=== PATIENT | female | born 1975 | race Caucasian/White ===

== ENCOUNTER 2022-01-24 12:11 | Observation (INO) | payer BC, SELFPAY ==
--- NOTE | ~2022-01-24 | CT_ITS ---
EXAMINATION: CT abdomen pelvis wo con DATE: 01/24/2022 14:40 INDICATION: Right flank pain TECHNIQUE: Computed tomography (CT) of the abdomen and pelvis was performed without intravenous contr ast. The dose-length product (DLP) was 188.28 mGy-cm. Automated exposure control and iterative recons truction technique were employed. COMPARISON: None FINDINGS: The lung bases are clear. The heart size is normal. The gallbladder is surgically absent. T he liver, spleen, pancreas, and adrenal glands are normal. Punctate nonobstructing stones of the left kidney measure up to 2 mm. There is a 3 mm stone in the distal right ureter which causes mild hydrou reteronephrosis. No pathologically enlarged abdominal or pelvic lymph nodes are identified. There is no free intraperitoneal gas or evidence of bowel obstruction. The appendix is normal. There is mild l umbar spondylosis. There is a fat-containing umbilical hernia. IMPRESSION: 1. 3 mm stone of the distal right ureter causing mild right hydroureteronephrosis. 2. Nonobstructing left nephrolithiasis. Reviewed, dictated and finalized at location B. IMPRESSION: 1. 3 mm stone of the distal right ureter causing mild right hydroureteronephros is. 2. Nonobstructing left nephrolithiasis.
--- NOTE | ~2022-01-24 | XR_ITS ---
EXAMINATION: XR retrograde pyelo w/stent RT DATE: 01/25/2022 13:09 INDICATION: Right ureteral stone with right hydronephrosis TECHNIQUE: 5 fluoroscopic images of the abdomen and pelvis were obtained during procedure performed andrew Gruber. Radiologist was not present for the imaging or procedure. The amount of fluoroscopy t paul used during this procedure was 0.2 minutes. COMPARISON: None. FINDINGS: the right ureteral stone evident on prior CT is unable to be visualized on the professional sports scout image. Cholecyst ectomy clips are seen in the right upper quadrant. Subsequent images demonstrate cannulation and retr ograde contrast injection into the right ureter demonstrating mild right hydronephrosis. Subsequent i mages demonstrate placement of a right internal ureteral stent with proximal tip at the right renal p bhavna and distal tip coiled in the bladder. IMPRESSION: 1. Mild right hydronephrosis with placement of a right internal ureteral stent. The distal right uret eral stone was unable to be visualized on the professional sports scout images and would correlate with procedure note re garding whether the stone had passed or was subsequently extracted. Reviewed, dictated and finalized at location A. IMPRESSION: 1. Mild right hydronephrosis with placement of a right internal ureteral stent. The distal right ureteral stone was unable to be visualized on the professional sports scout image s and would correlate with procedure note regarding whether the stone had passe d or was subsequently extracted.
[2022-01-24 12:13] VITALS: BP 147/72; PULSE 69; RESP 18; TEMP 36.9; O2SAT 98
[2022-01-24 12:25] LABS: Basophils Absolute Auto 0.1 K/mm3 (0.0-0.1); Eosinophils Absolute Auto 0.1 K/mm3 (0-0.3); Eosinophils Percent Auto 2.2 % (0-4.4); Hemoglobin 13.5 g/dL (12.0-15.0); Immature Granulocyte Absolute 0.02 K/mm3 (0.00-0.031); Immature Granulocyte Percent A 0.4 % (0-0.5); Lymphocytes Absolute Auto 1.17 K/mm3 (0.9-3.2); Lymphocytes Percent Auto 23.5 % (18.3-44.2); Mean Corpuscular HGB Conc 32.9 g/dl (32-36); Mean Corpuscular Hemoglobin 30.5 pg (26-34); Mean Corpuscular Volume 92.6 fl (80-100); Mean Platelet Volume 10.8 fl (7.4-10.4); Monocytes Absolute Auto 0.2 K/mm3 (0.1-0.6); Monocytes Percent Auto 3.6 % (2.6-8.5); Neutrophils Absolute Auto 3.4 K/mm3 (1.3-6.7); Neutrophils Percent Auto 69.3 % (45.5-73.1); Platelet Count Result 258 k/mm3 (150-375); Red Blood Count 4.43 M/mm3 (4.2-5.4); Red Cell Distribution Width 12.8 % (11.5-14.5)
[2022-01-24 12:34] LABS: Alanine Aminotransferase 14 U/L (6-35); Albumin Level 4.6 g/dL (3.5-5.1); Alkaline Phosphatase 52 U/L (38-126); Anion Gap 9 mmol/L (8-16); Aspartate Amino Transferase 21 U/L (14-36); Bilirubin,Total 0.7 mg/dL (0.2-1.3); Blood Urea Nitrogen 14 mg/dL (7-17); Calcium 9.7 mg/dL (8.4-10.2); Carbon Dioxide 27 mmol/L (22-30); Chloride 104 mmol/L (98-107); Estimated CRCL calculation 60 ml/min; Estimated Glomerular Filt Rate 59; Glucose 96 mg/dL (65-110); Potassium 4.1 mmol/L (3.4-5.0); Sodium 140 mmol/L (137-145)
[2022-01-24 12:46] LABS: Appearance Urine Clear (Clear); Bilirubin Urine Negative (Negative); Blood Urine 3+ (Negative); Color Urine Yellow (Yellow); Glucose Urine UA Negative (Negative); Ketones Urine Negative (Negative); Leukocyte Esterase Ur Negative LEU/UL (Negative); Nitrate Urine Negative (Negative); Protein Urine Negative (Negative); Specific Grav Ur 1.015 (1.001-1.035); Urobilinogen Urine 0.2 mg/dL (<2.0)
[2022-01-24 12:56] LABS: Bacteria Urine Trace /hpf; Mucus Urine Rare /lpf; RBC Urine >75 /hpf (0-2); Squamous Epithelial Cell Urine Few /hpf (Few)
[2022-01-24 12:57] LABS: Add Urine Microscopic? YES
[2022-01-24] MEDS: KETOROLAC 30 MG/ML VIAL (*BKC) IV PUSH (14:23)
--- NOTE | 2022-01-24 16:21 | ED.GENADULT ---
HPI - General Adult General Chief complaint: Abdominal Pain Stated complaint: kidney stone, flank pain Time Seen by Provider: 01/24/22 13:33 History of Present Illness HPI narrative: Patient is a 46-year-old female who presents the ER with reports of right-sided flank pain. Patient has history of kidney stones. She reports scar tissue in her distal ureter where the stones often get caught. She has been passing 1 for couple weeks and failed to follow-up with urologist that was assigned to our. She is supposed to have follow-up in the next 2 days with another urologist. Her normal urologist is currently on maternity leave. Patient has brought a CT report with her from 01/06/2022 that shows a 2 to 3 mm calculus in the distal ureter on the right side. Patient is having no fevers or chills or sweats. No burning urination. Last instrumentation for kidney stone was in March 2021. Related Data Home Medications Medication Instructions Recorded Confirmed hydrocodone 5 mg-acetaminophen 325 1 tablet PO TID PRN flank pain 01/24/22 01/24/22 mg tablet ondansetron 8 mg disintegrating 8 mg PO Q8H PRN Nausea 01/24/22 01/24/22 tablet tamsulosin 0.4 mg capsule (Flomax) 0.4 mg PO PRN PRN flank pain 01/24/22 01/24/22 Allergies Allergy/AdvReac Type Severity Reaction Status Date / Time morphine Allergy Severe Difficulty Verified 01/24/22 18:03 Breathing Review of Systems Review of Systems: All systems reviewed & are unremarkable except as noted in HPI and below Constitutional: Constitutional: Denies chills and Denies fever(s) Cardiovascular: Cardiovascular: Denies chest pain, Denies rapid heart rate and Denies radiating jaw, neck or arm pain Respiratory: Respiratory: Denies cough and Denies dyspnea Gastrointestinal: Gastrointestinal: Reports abdominal pain, Denies diarrhea, Reports nausea and Denies vomiting Genitourinary: Genitourinary: Denies hematuria, Reports nocturia, Denies dysuria and Reports flank pain PMFSH Past Medical History Medical History (Updated 01/24/22 @ 22:36 by Alen Canas MD) History of kidney stones Ureteral stricture, right Surgical History Surgical History (Updated 01/24/22 @ 22:33 by Alen Canas MD) History of lithotripsy Family History Family History (Updated 01/24/22 @ 18:16 by Ximena Cornejo RN) Mother Lupus Lung cancer Daughter Lupus Social History Social History Smoking status: Never smoker Alcohol intake: never Substance use: never Spiritual care concerns: No Exam Narrative: GENERAL: Well-appearing, well-nourished, and in no acute distress. HEAD: Normocephalic, atraumatic. EYES: PERRL and EOMI. ENT: Mucous membranes moist. CHEST: Clear to auscultation. No respiratory distress. HEART: Regular rate and rhythm. Normal peripheral pulses. ABDOMEN: Soft, nontender, nondistended. Right CVA tenderness. EXTREMITIES: Normal range of motion. No edema. SKIN: Warm, dry, no rash. NEURO: Alert and oriented x3. PSYCH: Normal mood and affect. Course Course Emergency Course: Patient still with pain after Toradol. Fentanyl has helped. Discussed with urology. Patient does have scheduled follow-up in 2 days however given the prolonged nature of the stone being there and the fact that she reports a stricture she is being offered a procedure tomorrow. Patient would like to stay overnight and have the stone removed tomorrow. Vital Signs Vital signs: Vital Signs Temperature 98.5 F 01/24/22 12:13 Pulse Rate 69 01/24/22 12:13 Respiratory Rate 18 01/24/22 12:13 Blood Pressure 147/72 H 01/24/22 12:13 Pulse Oximetry 98 01/24/22 12:13 Oxygen Delivery Room Air 01/24/22 12:13 Temperature 97.7 F 01/24/22 20:34 Pulse Rate 78 01/24/22 20:34 Respiratory Rate 20 01/24/22 20:34 Blood Pressure 124/66 01/24/22 20:34 Pulse Oximetry 100 01/24/22 20:34 Oxygen Delivery Room Air 01/24/22 17:42 Medical Decision M
[2022-01-24] MEDS: fentaNYL CITRATE INJ (*CRX) 100 MCG/2 ML VIAL 50 MCG IV PUSH ×3 (16:23→20:40)
[2022-01-24 16:58] VITALS: BP 139/86; PULSE 82; RESP 16; O2SAT 98
[2022-01-24 17:45] VITALS: BP 124/75; PULSE 57; RESP 14; TEMP 36.3; O2SAT 100; BMI 24.7
[2022-01-24] MEDS: SODIUM CHLORIDE 0.9% IV 1,000 ML 125 ML IV CONT (17:49)
[2022-01-24 18:07] VITALS: BMI 24.7
--- NOTE | 2022-01-24 18:10 | ADMGEN ---
This patient, Janice Ortega, was admitted to Medical Room 245-. Patient/family oriented to hospital policies and general routines including ID bracelet, bed and alarms, visiting hours, pain management, procedures, bathroom and other care routines, personal items, smoking policy, room service/diet, and visiting hours. Information on how to activate the Rapid Response Team has been discussed. Patient/Family are encouraged to report perceived risks to care and to ask questions if they do not understand what they are told or what they should do.
[2022-01-24 20:34] VITALS: BP 124/66; PULSE 78; RESP 20; TEMP 36.5; O2SAT 100
[2022-01-24] MEDS: HYDROcodone/acetaminophen (*CRX) 5-325 MG TABLET 1 TAB PO (21:20)
[2022-01-25] VITALS (12 sets, daily range): BP systolic 114–144; BP diastolic 65–87; PULSE 52–72; RESP 15–18; TEMP 36.3–36.6; O2SAT 98–100
[2022-01-25] MEDS: SODIUM CHLORIDE 0.9% IV 1,000 ML 125 ML IV CONT ×2 (01:50→09:59)
[2022-01-25] MEDS: HYDROcodone/acetaminophen (*CRX) 5-325 MG TABLET 1 TAB PO ×2 (01:50→14:58)
[2022-01-25] MEDS: fentaNYL CITRATE INJ (*CRX) 100 MCG/2 ML VIAL 50 MCG IV PUSH ×2 (08:01→11:00)
[2022-01-25] MEDS: ONDANSETRON INJ 4 MG/2 ML VIAL IV PUSH (08:01)
--- NOTE | 2022-01-25 10:43 | PC.NURSE ---
Report called to Myra NEVES preop.
--- NOTE | 2022-01-25 11:12 | WPDURCON ---
Assessment and Plan Assessment and plan (1) Ureterolithiasis: Code(s): N20.1 - Calculus of ureter Status: Acute Assessment and Plan: Keep NPO. Obtain Consent: Cystoscopy, right ureteroscopy with stone extraction, possible stent placement, right retrograde pyelogram, possible holmium laser. Plan to go to the OR today with Dr. Gruber. Urology Consult Note HPI Date Seen: 01/25/22 Time Seen: 11:25 Requesting Physician: Jaime Gruber MD Primary Care Provider: El Hensley, PAAnitaC Consult Narrative Reason for consult: Right Distal Ureteral Stone Narrative: Janice Ortega is a 46 year old female who presented to the ER last night for worsening right flank pain, nausea, vomiting, gross hematuria for a known right distal ureteral stone measuring 3mm that was diagnosed in the ER at [facility] in [place], [place] on 01/07/22. She was sent home from there with antibiotics, pain medications and told to try to pass her stone and f/u with her urologist. She is a former patient of Dr. Barreto but no longer see's him d/t being non compliant. She then started seeing Dr. Michelle Garcia at [facility], but she is on maternity leave at this time therefore she made an appt with Dr. Golden at our practice for tomorrow to be re-evaluated but the pain became too severe for her to wait for her appointment with our group. Her WBC 5.0, Creatinine is 1.00, UA shows some RBC's but is otherwise not concerning for a UTI. She states she had a negative urine culture with her PCP from last week. She has a urologic history with stones and infections dating back to 2 years of age. She has had ESWL's and Ureteroscopy's with stents in the past and states she doesn't do well with stents and has severe pain with them. She states she has had a hard time urinating since last night, she has the urge but cannot go very much. She also is afebrile at this time. Review of Systems Constitutional: Constitutional: Reports fatigue Cardiovascular: Cardiovascular: Denies chest pain Respiratory: Respiratory: Reports no additional respiratory complaints Gastrointestinal: Gastrointestinal: Reports abdominal pain, Reports nausea and Reports vomiting Genitourinary: Genitourinary: Reports hematuria, Denies nocturia, Denies dysuria, Reports flank pain, Denies urinary incontinence, Reports urinary hesitancy and Denies urinary urgency PMFSH Past Medical History Medical History History of kidney stones Ureteral stricture, right Surgical History Surgical History History of lithotripsy Family History Family History Mother Lupus Lung cancer Daughter Lupus Social History Social History Smoking status: Never smoker Alcohol intake: never Substance use: never Spiritual care concerns: No Meds Home Medications and Allergies Home Medications Medication Instructions Recorded Confirmed Type hydrocodone 5 mg-acetaminophen 325 1 tablet PO TID PRN flank pain 01/24/22 01/24/22 History mg tablet ondansetron 8 mg disintegrating 8 mg PO Q8H PRN Nausea 01/24/22 01/24/22 History tablet tamsulosin 0.4 mg capsule (Flomax) 0.4 mg PO PRN PRN flank pain 01/24/22 01/24/22 History Allergies Allergy/AdvReac Type Severity Reaction Status Date / Time morphine Allergy Severe Difficulty Verified 01/24/22 18:03 Breathing Vital Signs Vital Signs - 24 hr 01/24/22 12:13 01/24/22 16:58 01/24/22 17:45 Temperature 98.5 F 97.4 F L Pulse Rate 69 82 57 L Respiratory Rate 18 16 14 Blood Pressure 147/72 H 139/86 124/75 Pulse Oximetry 98 98 100 Oxygen Delivery Room Air 01/24/22 17:42 01/24/22 20:34 01/25/22 06:00 Temperature 97.7 F 97.7 F Pulse Rate 78 60 Respiratory Rate 20 16 Blood Pressure
--- NOTE | 2022-01-25 12:10 | PC.NURSE ---
To OR via stretcher.
--- NOTE | 2022-01-25 12:17 | WPDHPUPDATE1 ---
History and Physical Update Update Date/Time: 01/25/22 12:17 History and Physical has been reviewed, including an updated exam of the patient. There are NO changes in the patient's condition. Risks, benefits, and alternatives have been discussed and questions answered. Patient agrees to proceed with procedure.
[2022-01-25] MEDS: LACTATED RINGERS 1,000 ML 30 ML IV CONT ×2 (12:25→13:11)
--- NOTE | 2022-01-25 12:31 | WPDANESEPPF ---
Anes - Initial Pre Proc Eval Procedure: Operation Date: 01/25/22 13:30 Proposed Procedures p Cystoscopy, Right Ureteroscopy, Right Retrograde Pyelogram, Possible Right Stone Extraction, Possible Right Stent Placement, Possible Holmium Laser Procedure - Jaime Gruber MD Date/Time: 01/25/22 12:31 Surgeon: Jaime Gruber MD Pre Op Diagnosis: Ureterolithiasis Patient Data Age: 46 Gender: F Height: 1.7 m Weight: 71.8 kg Last Vital Signs Temp 36.5 C 01/25/22 06:00 Pulse 60 01/25/22 06:00 Resp 18 01/25/22 08:00 BP 138/80 01/25/22 06:00 Pulse Ox 98 01/25/22 08:14 O2 Del Method Room Air 01/25/22 08:14 Allergies Allergy/AdvReac Type Severity Reaction Status Date / Time morphine Allergy Severe Difficulty Verified 01/24/22 18:03 Breathing Home Medications Medication Instructions Recorded Confirmed Type hydrocodone 5 mg-acetaminophen 325 1 tablet PO TID PRN flank pain 01/24/22 01/24/22 History mg tablet ondansetron 8 mg disintegrating 8 mg PO Q8H PRN Nausea 01/24/22 01/24/22 History tablet tamsulosin 0.4 mg capsule (Flomax) 0.4 mg PO PRN PRN flank pain 01/24/22 01/24/22 History Laboratory Tests 01/24/22 01/24/22 12:18 12:23 Sodium 140 mmol/L mmol/L (137-145) Potassium 4.1 mmol/L mmol/L (3.4-5.0) Chloride 104 mmol/L mmol/L (98-107) Carbon Dioxide 27 mmol/L mmol/L (22-30) Anion Gap 9 mmol/L mmol/L (8-16) BUN 14 mg/dL mg/dL (7-17) Creatinine 1.00 mg/dL mg/dL (0.7-1.0) Estim Creat Clear Calc 60 ml/min ml/min Estimated GFR 59 (59 - ) Glucose 96 mg/dL mg/dL (65-110) Calcium 9.7 mg/dL mg/dL (8.4-10.2) Total Bilirubin 0.7 mg/dL mg/dL (0.2-1.3) AST 21 U/L U/L (14-36) ALT 14 U/L U/L (6-35) Alkaline Phosphatase 52 U/L U/L (38-126) Total Protein 7.0 g/dL g/dL (6.3-8.2) Albumin 4.6 g/dL g/dL (3.5-5.1) Urine Color Yellow (Yellow) Urine Appearance Clear (Clear) Urine pH 7.0 (5.0-9.0) Ur Specific Patriot 1.015 (1.001-1.035) Urine Protein Negative mg/dL mg/dL (Negative) Urine Glucose (UA) Negative mg/dL mg/dL (Negative) Urine Ketones Negative mg/dL mg/dL (Negative) Ur Blood (Man) 3+ H (Negative) Urine Nitrate Negative (Negative) Urine Bilirubin Negative (Negative) Urine Urobilinogen 0.2 mg/dL mg/dL (<2.0) Leukocyte Esterase Rfl Negative JOLYNN/UL JOLYNN/UL (Negative) Urine RBC >75 /hpf H /hpf (0-2) Urine WBC 4-6 /hpf H /hpf Ur Squamous Epith Cells Few /hpf /hpf (Few) Urine Bacteria Trace /hpf /hpf Urine Mucus Rare /lpf /lpf Patient hx anesthesia problems: none Family hx anesthesia problems: none Results Review: All pre-operative results and documents have been reviewed as part of the pre-operative evaluation. [facility] Past Medical History Medical History History of kidney stones Ureteral stricture, right Surgical History Surgical History History of lithotripsy Family History Family History Mother Lupus Lung cancer Daughter Lupus Social History Social History Smoking status: Never smoker Alcohol intake: never Substance use: never Spiritual care concerns: No Anes - Eval Final PreProcedure Day of Procedure 01/25/22 12:31 Patient weight: normal Heart: regular rate and rhythm Lungs: clear to auscultation Airway: Mallampati scale class II Neurological: alert and oriented Last oral intake: >/= 8 hours ASA classification: II Emergent: no Anesthetic plan: proceed Anesthesia type and monitoring: general LMA and standard monitori
[2022-01-25] MEDS: ceFAZolin 2 GM/D5W 50 ML 2 GM/50 ML BAG IVPB (12:39)
[2022-01-25] MEDS: LIDOCAINE HCL 2% GEL UROJET 10 ML PKG MUCOUS MEM (13:04)
--- NOTE | 2022-01-25 13:06 | W.PM.PROC2 ---
Procedure Note - Detailed Date of Procedure 01/25/22 Pre-op Diagnosis Right ureteral calculus Post-op Diagnosis Same Procedure Performed Cystoscopy, right retrograde pyelogram, right ureteroscopy with stone extraction, right ureteral stent placement 4.8 English contour Surgeon Jaime Gruber MD Anesthesia General Description of Procedure Patient is taken to the operative suite correctly identified. Once anesthesia was obtained she was placed in dorsal lithotomy position and prepped and draped usual sterile fashion. Twenty-two English scope was inserted into the bladder. There were no tumors noted. Right ureteral orifice was cannulated with a guidewire. We dilated the orifice using an 8/10 dilator. Rigid ureteral scope was then inserted into the right ureteral orifice. The stone was visualized. There were 2 stone fragments that were visualized and then grasped with an escape basket. These were retrieved and sent for analysis. Reinspection revealed no residual ureteral stones. Pyelogram was then performed to confirm placement the stent. 4.8 English contour stent was placed with the proximal end coiled in the renal pelvis and the distal in the bladder. The string was left attached. Patient was taken recovery stable condition. She will be discharged home later today and can remove the stent on Monday. Urine Output 400 Drains Yes Packing No Pathology Yes Complications No immediate complications Condition Stable Disposition PACU
[2022-01-25] MEDS: fentaNYL CITRATE INJ (*CRX) 100 MCG/2 ML VIAL 25 MCG IV PUSH (13:40)
--- NOTE | 2022-01-25 13:52 | SUR.PHASEI ---
[facility] FAX'D. PATIENT ON BEDPAIN; HAS URGENCY BUT CAN'T VOID.
--- NOTE | 2022-01-25 14:20 | PC.NURSE ---
Returned from OR via stretcher.
[2022-01-25] MEDS: HYOSCYAMINE SULFATE 0.125 MG TABLET PO (14:58)
--- NOTE | 2022-02-08 16:02 | PM.DS ---
DS: Admitting Diagnosis Discharge Date 01/25/22 Admitting Diagnosis Right Ureteral Stone DS: Discharge Diagnosis Discharge Diagnosis Plan Right Ureteral Stone DS: Summary Hospital Course Reason for hospitalization: Right Ureteral Stone/Flank Pain Hospital Course: The patient was hospitalized d/t right flank pain, nausea and vomiting secondary to a right ureteral stone diagnosed via CT scan on 01/24/22 in the ER. She was then taken to the OR on 01/25/[address] Gruber for a Cystoscopy, right retrograde pyelogram, right ureteroscopy with stone extraction, right ureteral stent placement 4.8 Korean contour, which she tolerated well, and was then later discharged home that afternoon. She had her stent left in with a string so she could remove 2-3 days later at home herself. She was tolerating her diet and activity after her procedure. She was then discharged home on a regular diet, to resume home meds and previous pain medications given in the ER and oxybutynin for spasms. Her urine culture was negative, therefore no antibiotics were needed. She was also to resume normal activity. Time spent discussing smoking cessation with patient: more than 10 minutes Status at Discharge Functional status at discharge: independent ambulation Overall status at discharge: patient is progressing back to baseline Time Spent with Patient Time attestation: Total time spent providing and/or coordinating discharge services: Time spent: Greater than 30 minutes Exam Const: General: cooperative and no acute distress Resp: Effort & Inspection: normal respiratory effort Cardio: Rate: regular rate GI: GI Palp: Yes Soft to palpation and No Tenderness to palpation present (GI) : General: Yes CVA tenderness Extrem: General: no edema DS: Data Data Completed and Pending Completed studies during hospitalization: Pending at discharge 01/25/22 13:04 Surgical [PTH] Routine Discharge Plan Discharge Attending physician on discharge: Jaime Gruber Consulting providers: Joesph Lara ; Anoop Armijo Discharging Clinician: Mary Herman Anticipated Discharge Date/Time: 01/25/22 18:30 Patient Disposition: Home, Self-Care Activity: may shower, no straining and as tolerated Diet: as tolerated Discharge Instructions: The patient will be scheduled for a follow up in one year to monitor left renal stones which are non obstructive. She will remove her stent which is on a string on Hubert. Call the office or go to the ER for severe persistent pain, blood in the urine, burning with urination that doesn't improve after stent removal or fever that develops. Blood in the urine and burning with urination are normal and expected for several days after the stent is removed. Patient Instructions: Antibiotic Form Stand Alone Forms: General Discharge Information Follow-up/Referrals: Isabel Barreto MD [Physician] - Discharge Medications: New hyoscyamine sulfate [Anaspaz] 0.125 mg Tablet,Disintegrating 0.125 mg PO Q4H PRN (Reason: Bladder Spasm) Qty: 20 0RF cephalexin 500 mg capsule 500 mg PO Q12H Qty: 10 0RF Continued hydrocodone-acetaminophen 5-325 mg tablet 1 tablet PO TID PRN (Reason: flank pain) Changed ondansetron 8 mg Tablet,Disintegrating 4 mg PO Q8H PRN (Reason: Nausea) Qty: 12 0RF Discontinued tamsulosin [Flomax] 0.4 mg Capsule 0.4 mg PO PRN PRN (Reason: flank pain) Date of admission: 01/24/22 16:48 Primary Care Provider: AydenEl Admitting Provider: Jaime Gruber Attending physician on admission: Mary Herman Condition: Stable
== END 2022-01-25 19:35 | disposition home or self-care (01) ==
LOC: ANHED 13:48 → ANH2MED 17:29
PROVIDERS: Admitting Provider Urology; Emergency Provider Emergency Medicine; PCP Physician Assistant; Visit Provider Nurse Practitioner Adult Health
PROC: (CPT 52352; principal; 2022-01-25 13:30)
DX: N13.2 Hydronephrosis with renal and ureteral calculous obstruction (principal); R53.83 Other fatigue; Z87.442 Personal history of urinary calculi; Z79.891 Long term (current) use of opiate analgesic; Z79.899 Other long term (current) drug therapy
CPT/HCPCS: 52352; 36415; 74176; 74420; 80053; 81001; 82365; 85025; 87086; 88300; 96361; 96374; 96375; 96376; 99285; A9270; C1769; C2617; G0378; J0690; J1100; J1885; J2405; J2704; J3010; J7030; J7120